=== PATIENT | male | born 1980 | race African-American/Black ===

== ENCOUNTER 2017-06-24 21:02 | Emergency (ER) | payer MEDICAID ==
[~2017-06-24] VITALS: Ht 170.2 cm; Wt 79.4 kg
[2017-06-24] MEDS ORDERED: LORAZEPAM 0.5 MG TABLET PO ONE (21:30)
[2017-06-24] MEDS ORDERED: OLANZAPINE 10 MG VIAL IM ONE ×2 (21:30→21:46)
[2017-06-24] MEDS ORDERED: DIVALPROEX SOD DR 500 MG TAB (21:34)
[2017-06-24] MEDS ORDERED: LITHIUM CARBONATE 300 MG CAP (21:34)
[2017-06-24] MEDS ORDERED: QUETIAPINE FUMARATE 300 MG TAB (21:34)
--- NOTE | 2017-06-24 21:36 | NUR ---
No 1:1 sitter available per nursing preparation supervisor freezing, security at bedside for safety.
[2017-06-24] MEDS ORDERED: LORAZEPAM 1 MG TABLET ONE (21:49)
[2017-06-24 21:53] LABS: BASOPHILS % (AUTO) 0.2 % (0.0-2.0); EOSINOPHILS # (AUTO) 1.2 K/uL (0.0-0.7); EOSINOPHILS % (AUTO) 8.5 % (0.0-7.0); HEMATOCRIT 43.3 % (36.7-47.1); HEMOGLOBIN 14.7 g/dL (12.5-16.3); LYMPHOCYTES % (AUTO) 14.9 % (20.5-51.5); MEAN CORPUSCULAR HEMOGLOBIN 28.9 uug (23.8-33.4); MEAN CORPUSCULAR HGB CONC 34 g/dL (32.5-36.3); MONOCYTES # (AUTO) 1.7 K/uL (2.0-10.0); MONOCYTES % (AUTO) 12.2 % (0.0-11.0); NEUTROPHILS # (AUTO) 8.7 K/uL (1.8-8.9); NEUTROPHILS % (AUTO) 64.2 % (38.5-71.5); PLATELET COUNT (AUTO) 223 K/uL (152-348); WHITE BLOOD COUNT (AUTO) 13.6 K/uL (3.6-10.2)
[2017-06-24 21:56] LABS: ETHANOL < 3 MG/DL (0-0)
[2017-06-24 21:58] LABS: ALANINE AMINOTRANSFERASE 25 U/L (16-63); ALKALINE PHOSPHATASE 66 U/L (50-136); ASPARTATE AMINOTRANSFERASE 15 U/L (15-37); BILIRUBIN,DIRECT 0.1 mg/dL (0.0-0.2); BILIRUBIN,TOTAL 0.2 mg/dL (0.2-1.0); CARBON DIOXIDE 30 mmol/L (21-32); CHLORIDE 103 mmol/L (98-107); CREATININE 0.9 mg/dL (0.6-1.3); GLUCOSE 95 mg/dL (74-106); POTASSIUM 3.5 mmol/L (3.5-5.1); TOTAL PROTEIN, SERUM 7.5 g/dL (6.4-8.2); UREA NITROGEN, BLOOD 14 mg/dL (7-18); VALPROIC ACID 26 ug/mL (50-100)
[2017-06-24 22:01] LABS: *AMPHETAMINE, URINE POSITIVE (NEGATIVE); *BARBITURATE, URINE NEGATIVE (NEGATIVE); *CANNABINOID, URINE NEGATIVE (NEGATIVE); *COCCAINE, URINE NEGATIVE (NEGATIVE); *OPIATE, URINE NEGATIVE (NEGATIVE); *PHENCYCLIDINE SCREEN,URINE NEGATIVE (NEGATIVE)
[2017-06-24 22:02] LABS: ACETAMINOPHEN < 2.0 ug/mL (10-30)
[2017-06-24 22:02] LABS: *BILIRUBIN,URIN NEGATIVE (NEGATIVE); *BLOOD, URINE NEGATIVE (NEGATIVE); *CLARITY,URINE SLIGHTLY CLOUDY (CLEAR); *COLOR,URINE YELLOW (YELLOW); *KETONES,URINE NEGATIVE (NEGATIVE); *PROTEIN,URINE NEGATIVE (NEGATIVE); *UROBILINOGEN,URINE 0.2 E.U./dl (NORMAL); LEUKOCYTE ESTERASE ,URINE NEGATIVE (NEGATIVE); NITRITE, URINE NEGATIVE (NEGATIVE); PH,URINE 5.5 (5.0-8.0); UGLUCOSE NEGATIVE (NEGATIVE)
[2017-06-24 22:03] LABS: BACTERIA,URINE NONE SEEN /HPF (NONE SEEN); RBC,URINE 0-3 /HPF (0-3); SQUAMOUS EPITHELIAL CELL,UR NONE SEEN /HPF (NONE SEEN); WBC,URINE 0-3 /HPF (0-3)
--- NOTE | 2017-06-24 22:18 | NUR ---
Call placed to [facility], for PET evaluation.
--- NOTE | 2017-06-24 22:57 | NUR ---
PET stripping shovel oiler at bedside.
--- NOTE | 2017-06-25 00:02 | NUR ---
Call received from Coy at [facility] ([facility]) who stated the patient estrellita accepted by Dr. Perez.
--- NOTE | 2017-06-25 00:25 | NUR ---
Call placed to [facility] for transportation, ETA [id number].
--- NOTE | 2017-06-25 00:33 | NUR ---
Report given to Loyda at [facility] (unit 2).
--- NOTE | 2017-06-25 01:01 | NUR ---
Patient discharged to [facility] in stable conditon. Written and verbal after care instructions given. Patient verbalizes understanding of instructions. [facility] transported patient.
== END 2017-06-25 01:04 | disposition short-term general hospital (02) ==
LOC: ER 21:05
DX: Z91.14 Patient's other noncompliance with medication regimen (principal); F23 Brief psychotic disorder; F31.9 Bipolar disorder, unspecified; R45.851 Suicidal ideations; Z59.0 Homelessness; F15.10 Other stimulant abuse, uncomplicated; Z88.8 Allergy status to other drugs, medicaments and biological substances
CPT/HCPCS: 36415; 70030-TC; 80164; 80307; 85025; A4663; G0480; G0480-TC; J2358